=== PATIENT | male | born 1995 | race Asian ===

== ENCOUNTER 2020-09-29 19:16 | Emergency (ER) | payer SELFPAY ==
[~2020-09-29] VITALS: Ht 167.6 cm; Wt 72.7 kg
[2020-09-29 20:17] VITALS: BP 139/76
== END 2020-09-29 20:39 | disposition home or self-care (01) ==
LOC: EMS 19:16
DX: H72.92 Unspecified perforation of tympanic membrane, left ear (principal)
CPT/HCPCS: 99283